=== PATIENT | male | born 1950 | race Caucasian/White ===

== ENCOUNTER 2017-02-18 18:35 | Observation (INO) | payer BC ==
[~2017-02-18] VITALS: Ht 172.7 cm; Wt 77.0 kg
[~2017-02-18 18:35] MED LIST: METFORMIN
[2017-02-18 19:07] VITALS: Ht 172.7 cm; Wt 77.0 kg
[2017-02-18] MEDS ORDERED: SODIUM CHLORIDE 0.9% 1L BAG IV* STA (20:35)
[2017-02-18] MEDS ORDERED: VANCOMYCIN 1 GM (PMX) 250 ML IVPB STA (20:35)
[2017-02-18] MEDS ORDERED: AZTREONAM 1 GM/NS (PMX) 50 ML IVPB STA (20:35)
[2017-02-18 21:13] LABS: ADD SCAN DIFF NO
[2017-02-18 21:17] LABS: BASOPHILS % 0.4 % (0.0-2.0); EOSINOPHILS # 0.5 10^3/ul (0.0-0.5); EOSINOPHILS % 10.9 % (0.0-7.0); LYMPHOCYTES # 0.9 10^3/ul (0.8-2.9); LYMPHOCYTES % 19.8 % (15.0-51.0); MEAN CORPUSCULAR HEMOGLOBIN 28.9 pg (29.0-33.0); MEAN CORPUSCULAR HGB CONC 34.8 g/dl (32.0-37.0); MEAN PLATELET VOLUME 9.6 fl (7.4-10.4); MONOCYTE # 0.5 10^3/ul (0.3-0.9); NEUTROPHIL # 2.7 10^3/ul (1.6-7.5); NEUTROPHILS % 58.2 % (39.0-77.0); PLATELET COUNT 153 10^3/UL (140-415); RED BLOOD COUNT 5.54 10^6/ul (4.70-6.10); RED CELL DISTRIBUTION WIDTH 11.9 % (11.5-14.5); WHITE BLOOD COUNT 4.6 10^3/ul (4.8-10.8)
[2017-02-18 21:32] LABS: ALANINE AMINOTRANSFERASE 67 IU/L (13-69); ALBUMIN 4.1 g/dl (3.3-4.9); ALKALINE PHOSPHATASE 106 IU/L (42-121); ANION GAP 11 (8-16); ASPARTATE AMINO TRANSFERASE 40 IU/L (15-46); BILIRUBIN,INDIRECT 0.5 mg/dl (0-1.1); BILIRUBIN,TOTAL 0.5 mg/dl (0.2-1.3); BLOOD UREA NITROGEN 18 mg/dl (7-20); CARBON DIOXIDE 26 mmol/L (21-31); CHLORIDE 101 mmol/L (97-110); CREATININE 1.21 mg/dl (0.61-1.24); GLUCOSE 198 mg/dl (70-220); SODIUM 133 mmol/L (135-144); TOTAL PROTEIN 7.8 g/dl (6.1-8.1)
[2017-02-18 21:36] LABS: ACETAMINOPHEN < 10.0 ug/ml (10.0-30.0); ETHANOL < 10.0 mg/dl; SALICYLATE < 1.0 mg/dl (5.0-30.0)
[2017-02-18 21:42] LABS: INR 1.07; PARTIAL THROMBOPLASTIN TIME 32.3 Sec (25.0-35.0); PROTIME 13.9 Sec (12.2-14.2); PT RATIO 1.1
[2017-02-18 21:49] LABS: TROPONIN-I < 0.012 ng/ml (0.00-0.12)
[2017-02-18 22:10] LABS: ADD UMIC YES; URINE BILIRUBIN (Dip) NEGATIVE (NEGATIVE); URINE BLOOD (Dip) 1+ (NEGATIVE); URINE COLOR LT. YELLOW (YELLOW); URINE GLUCOSE (Dip) NEGATIVE (NEGATIVE); URINE KETONES (Dip) NEGATIVE (NEGATIVE); URINE LEUKOCYTE ESTERASE (Dip) NEGATIVE (NEGATIVE); URINE NITRITE (Dip) NEGATIVE (NEGATIVE); URINE TOTAL PROTEIN (Dip) 2+ (NEGATIVE); URINE UROBILINOGEN (Dip) 0.2 E.U./dL (0.1-1.0)
--- NOTE | 2017-02-18 22:32 | RADRPT ---
PROCEDURE: XR Chest. CLINICAL INDICATION: Sepsis TECHNIQUE: AP Portable chest. COMPARISON: None available FINDINGS: The soft tissues and bones are remarkable for bilateral acromioclavicular osteoarthropathy and thora cic spondylosis. Low lung volumes are present. No focal infiltrates, masses or effusions are prese nt. The mediastinum is normal. Mild cardiomegaly is present. No pleural effusions are noted. No p neumothorax is present. IMPRESSION: 1. No radiographic evidence for acute cardiopulmonary disease. 2. Mild bilateral acromioclavicular osteoarthropathy and thoracic spondylosis. RPTAT: HDC .Mary Beth Salcedo MD, Date Time Electronically viewed and signed by .Mary Beth Salcedo MD, on 02/18/2017 22:32 .C/
--- NOTE | 2017-02-18 22:34 | RADRPT ---
PROCEDURE: CT Brain without contrast. CLINICAL INDICATION: Sepsis TECHNIQUE: A CT of the brain was performed on a GE [employer] 64-slice CT scanner utilizing axial imaging from the skull base through the vertex without IV contrast. Multiplanar reformatted images were made. Images were reviewed on a PACS workstation. The CTDIvol is 44.77 mGy and the DLP is 720 .23 mGycm. One of the following 3 dose reduction techniques were used: Automated exposure control; adjustment of the mA and/or kV according to patient size; or use of iterative reconstruction technique. COMPARISON: None available FINDINGS: There is no intracranial hemorrhage, mass effect, or midline shift. No extra-axial fluid collection is seen. The ventricles and sulci are normal in size and configuration. The density of the brain is normal, and the burns white matter differentiation appears well-preserved. The visualized scalp and calvarium are normal. The bilateral orbits are normal. The bilateral para nasal sinuses are remarkable for bilateral maxillary sinus air fluid levels. Mild chronic bilateral ethmoid sinus disease is present. The bilateral mastoid air cells and middle ear cavities are viridiana r. IMPRESSION: 1. No evidence of acute intracranial hemorrhage, infarcts, or acute intracranial pathology. 2. Normal noncontrast brain CT. 3. Acute bilateral maxillary sinusitis. RPTAT: HDC .Mary Beth Salcedo MD, MD Date Time Electronically viewed and signed by .Mary Beth Salcedo MD, MD on 02/18/2017 22:34 .C/
--- NOTE | 2017-02-18 22:40 | ERA ---
ER Documentation Chief Complaint Date/Time DATE: 02/18/17 TIME: 22:39 Chief Complaint Confusion, worsening vision, non compliant with abx for 10 days HPI Patient is a 67-year-old male with diabetes who presents with confusion. The patient also has headache and body aches. He has had a cough as well. The symptoms started on February 11 which was 1 week ago. The patient was given Zithromax but did not finish the whole course. He tried Mucinex as well. He has had fever. The family said he is so weak he could hardly even get him out of the house today to come to the emergency department. The patient's primary doctor is Dr. Chilango Solorio. ROS All systems reviewed and are negative except as per history of present illness. Medications Home Meds Discontinued Reported Medications [Metformin] No Conflict Check 07/10/10 Allergies Allergies: Coded Allergies: Penicillins (Verified Allergy, Mild, 02/18/17) PMhx/Soc History of Surgery: Yes (knee 30yrs ago) Anesthesia Reaction: No Hx Neurological Disorder: No Hx Respiratory Disorders: No Hx Cardiac Disorders: No Hx Psychiatric Problems: No Hx Miscellaneous Medical Probl: No Hx Alcohol Use: No Hx Substance Use: No Hx Tobacco Use: No Smoking Status: Never smoker FmHx Family History: No diabetes Physical Exam Vitals Vital Signs Date Time Temp Pulse Resp B/P Pulse Ox O2 Delivery O2 Flow Rate FiO2 02/18/17 21:00 Nasal Cannula 2 02/18/17 20:50 99.0 75 20 152/83 100 Nasal Cannula 02/18/17 19:07 99.7 85 20 169/83 94 Physical Exam Const: No acute distress Head: Atraumatic Eyes: Normal Conjunctiva ENT: Normal External Ears, Nose and Mouth. Neck: Full range of motion..~ No meningismus. Resp: Decreased breath sounds bilaterally Cardio: Regular rate and rhythm, no murmurs Abd: Soft, non tender, non distended. Normal bowel sounds Skin: No petechiae or rashes Back: No midline or flank tenderness Ext: No cyanosis, or edema Neur: Awake but seems diffusely weak Result Diagram: 02/18/17204402/18/172044 Results 24 hrs Laboratory Tests Test 02/18/17 20:45 02/18/17 21:40 White Blood Count 4.610^3/ul Red Blood Count 5.5410^6/ul Hemoglobin 16.0g/dl Hematocrit 46.0% Mean Corpuscular Volume 83.0fl Mean Corpuscular Hemoglobin 28.9pg Mean Corpuscular Hemoglobin Concent 34.8g/dl Red Cell Distribution Width 11.9% Platelet Count 86595^3/UL Mean Platelet Volume 9.6fl Neutrophils % 58.2% Lymphocytes % 19.8% Monocytes % 10.0% Eosinophils % 10.9% Basophils % 0.4% Nucleated Red Blood Cells % 0.0/100WBC Neutrophils # 2.710^3/ul Lymphocytes # 0.910^3/ul Monocytes # 0.510^3/ul Eosinophils # 0.510^3/ul Basophils # 0.010^3/ul Nucleated Red Blood Cells # 0.010^3/ul Prothrombin Time 13.9Sec Prothrombin Time Ratio 1.1 INR International Normalized Ratio 1.07 Activated Partial Thromboplast Time 32.3Sec Sodium Level 133mmol/L Potassium Level 5.0mmol/L Chloride Level 101mmol/L Carbon Dioxide Level 26mmol/L Anion Gap 11 Blood Urea Nitrogen 18mg/dl Creatinine 1.21mg/dl Glucose Level 198mg/dl Lactic Acid Level 1.2mmol/L Calcium Level 9.0mg/dl Total Bilirubin 0.5mg/dl Direct Bilirubin 0.00mg/dl Indirect Bilirubin 0.5mg/dl Aspartate Amino Transf (AST/SGOT) 40IU/L Alanine Aminotransferase (ALT/SGPT) 67IU/L Alkaline Phosphatase 106IU/L Ammonia < 9umol/l Troponin I < 0.012ng/ml Total Protein 7.8g/dl Albumin 4.1g/dl Globulin 3.70g/dl Albumin/Globulin Ratio 1.10 Thyroid Stimulating Hormone (TSH) 3.930MIU/L Free Thyroxine 0.99ng/dl Salicylates Level < 1.0mg/dl Acetaminophen Level < 10.0ug/ml Ethyl Alcohol Level < 10.0mg/dl Urine Color LT. YELLOW Urine Clarity SL HAZY Urine pH 6.0 Urine Specific [place] 1.010 Urine Ketones NEGATIVE Urine Nitrite NEGATIVE Urine Bilirubin NEGATIVE Urine Urobilinogen 0.2 E.U./dL Urine Leukocyte Esterase NEGATIVE Urine Microscopic RBC Pending Urine Microscopic WBC Pending Urine Hemoglobin 1+ Urine Glucose NEGATIVE% Urine Total Protein 2+ Current Medications Medications (Trade) Dose Ordered Sig/Pamela Route PRN Reason Start Time Stop Time Status Last Admin Dose Admin Sodium Chloride 2390 ml 2,390 ml BOLUS OVER 2 HOURS STAT IV* 02/18/17 20:35 02/18/17 20:38 DC 02/18/17 21:02 Vancomycin HCl 250 ml @ 125 mls/hr ONCE STAT IVPB 02/18/17 20:35 02/18/17 22:34 DC 02/18/17 21:47 Aztreonam (Azactam 1gm/NS (Pmx)) 50 ml @ 100 mls/hr ONCE STAT IVPB 02/18/17 20:35 02/18/17 21:04 DC 02/18/17 21:14 Procedures/MDM Chest x-ray negative per radiology. CT scan shows bilateral sinusitis per radiology. Patient is a 67-year-old male who presents with cough, fever, and confusion. The patient has basically normal laboratory studies of the low white blood cell count of 4.6. CT scan of the brain shows bilateral sinusitis. The patient's electrolytes are normal. There is no sign of intracranial mass or stroke. However given the patient's diffuse weakness and confusion I do believe that the patient should be admitted to the hospital at this time. The patient has regal insurance and I have placed a call to Dr. Hart and I am awaiting a call back at this time. The patient was given 30 mL/kg fluid bolus as well as broad- spectrum antibiotics with vancomycin and aztreonam. He has an allergy to penicillin. At this point I doubt sepsis. Departure Diagnosis: Primary Impression: Altered mental status Qualified Code: R41.82 - Altered mental status, unspecified altered mental status type Additional Impressions: Shortness of breath Pneumonia Qualified Code: J18.9 - Pneumonia due to infectious organism, unspecified laterality, unspecified part of lung Sinusitis Qualified Code: J01.90 - Acute non-recurrent sinusitis, unspecified location Condition: MARISSA Jacinto MD Feb 18, 2017 22:40
[2017-02-18 22:58] LABS: URINE RBCS 0-2 /HPF (0)
[2017-02-18] MEDS ORDERED: ONDANSETRON 4 MG INJ IV PRN (23:00)
[2017-02-18] MEDS ORDERED: ACETAMINOPHEN 325 MG TAB PO PRN (23:00)
[2017-02-18 23:08] LABS: BARBITURATES NEGATIVE (NEGATIVE); BENZODIAZEPINES NEGATIVE (NEGATIVE); CANNABINOIDS NEGATIVE (NEGATIVE); COCAINE NEGATIVE (NEGATIVE); OPIATES NEGATIVE (NEGATIVE)
[2017-02-19] MEDS ORDERED: ACETAMINOPHEN 325 MG TAB PO PRN
[2017-02-19] MEDS ORDERED: ZOLPIDEM 5 MG TAB PO PRN
[2017-02-19] MEDS ORDERED: KETOROLAC 30 MG INJ IV ONE (00:21)
[2017-02-19 05:54] LABS: ADD SCAN DIFF NO
[2017-02-19 05:57] LABS: BASOPHILS % 0.6 % (0.0-2.0); EOSINOPHILS # 0.7 10^3/ul (0.0-0.5); EOSINOPHILS % 12.6 % (0.0-7.0); HEMOGLOBIN 13.9 g/dl (14.0-18.0); LYMPHOCYTES # 1.2 10^3/ul (0.8-2.9); LYMPHOCYTES % 23.3 % (15.0-51.0); MEAN CORPUSCULAR HGB CONC 34.8 g/dl (32.0-37.0); MEAN CORPUSCULAR VOLUME 83.3 fl (82.0-101.0); MEAN PLATELET VOLUME 10.3 fl (7.4-10.4); MONOCYTE # 0.6 10^3/ul (0.3-0.9); MONOCYTES % 10.9 % (0.0-11.0); NEUTROPHIL # 2.8 10^3/ul (1.6-7.5); PLATELET COUNT 153 10^3/UL (140-415); RED CELL DISTRIBUTION WIDTH 11.9 % (11.5-14.5); WHITE BLOOD COUNT 5.3 10^3/ul (4.8-10.8)
[2017-02-19 06:28] LABS: ALBUMIN 3.6 g/dl (3.3-4.9); ALBUMIN/GLOBULIN RATIO 0.94; BILIRUBIN,INDIRECT 0.8 mg/dl (0-1.1); BILIRUBIN,TOTAL 0.8 mg/dl (0.2-1.3); CREATININE 1.2 mg/dl (0.61-1.24); TOTAL PROTEIN 7.4 g/dl (6.1-8.1)
[2017-02-19] MEDS ORDERED: LEVOFLOXACIN 500 MG TAB PO ONE (10:00)
[2017-02-19] MEDS: SOD CHLORIDE 0.9% 1,000 ML IV SCH ×3 (10:07→20:16)
[2017-02-19] MEDS ORDERED: BENAZEPRIL 20 MG TAB PO ONE (10:30)
--- NOTE | 2017-02-19 11:10 | HP ---
DATE OF ADMISSION: 02/18/2017 CHIEF COMPLAINT: Weakness and lethargy and altered mental status change. HISTORY OF PRESENT ILLNESS: The patient is a very pleasant 67-year-old gentleman who works in the maintenance department here at [employer]. He has diabetes mellitus, but does not take any medications, nor does he check his sugars at home. Approximately 1 week prior to presentation in the emergency department, the patient started feeling weak and short of breath. He presented to a clinic and was given "a shot" and he did not know what the medication was. He was also prescribed Zithromax and Mucinex. He took the Zithromax and Mucinex for approximately 3 days, but stopped it on his own because he did not feel it was helping. He also took Benadryl and subsequently took a Tylenol, which he believed helped. His symptoms persisted and he presented to the emergency department on 02/18/2017. The workup in the emergency department was essentially negative. That is, he had a normal white count and all of his labs were within normal limits. His blood sugar was 176. Hemoglobin A1c was elevated at 9.4. His BUN and creatinine were normal at 20 and 1.26. Overall, he was doing well other than his globulin be slightly elevated at 3.8, and his CT scan of the brain revealing no acute intracranial pathology. However, he did have bilateral acute sinusitis which was noted on his brain CT. He was given intravenous fluids including vancomycin and aztreonam and was placed on the observation floor for further management. ALLERGIES: PENICILLIN. PAST MEDICAL HISTORY: Diabetes mellitus. PAST SURGICAL HISTORY: The patient had renal cell carcinoma and had it being removed in 2007. SOCIAL HISTORY: Denies alcohol or tobacco use. He lives with his , daughter and 2 grandkids. He is otherwise healthy. FAMILY HISTORY: Essentially noncontributory. REVIEW OF SYSTEMS: Negative except as stated in the history of present illness. PHYSICAL EXAMINATION: VITAL SIGNS: Temperature is 98.2, blood pressure 144/66, pulse rate of 71, respiratory rate of 20, oxygen saturation 98% on 2 liters. HEENT: Normocephalic, atraumatic. Extraocular movements are intact. His pupils were equal, round, react to light and accommodations. Oropharynx is clear. No sinus pressure or tenderness on palpation. NECK: No JVD was noted. No thyromegaly was noted. CARDIOVASCULAR: Regular rate and rhythm without appreciable murmurs, rubs, or gallops. LUNGS: Clear to auscultation bilaterally without rales, rhonchi or crackles. ABDOMEN: Soft, nontender, nondistended. Normoactive bowel sounds present in all 4 quadrants. EXTREMITIES: No clubbing, cyanosis or edema was noted. LABS/TESTS: White count was 5.3, hemoglobin 13.6, hematocrit 40, platelet count 153,000 with a normal differential other than 12.6 eosinophils. Sodium is 135, potassium 5.0, chloride 109, bicarbonate 22, anion gap 9, BUN 20, creatinine 1.2. Hemoglobin A1c elevated at 9.4. Blood sugar is 176, calcium of 8.0. Bilirubin total of 0.8, indirect 0.8, AST 39, ALT 47, alkaline phosphatase 78, total protein 7.6, albumin 3.6, globulin elevated at 3.8. Toxicology is negative. Urine revealed 1+ hemoglobin and 2+ total protein, everything else was normal. His influenza A is negative. His influenza B positive is positive. His PT was 13.9, INR 1.07, PTT of 32.3. His chest x-ray was normal. His CT scan of the brain revealed acute bilateral maxillary sinusitis. IMPRESSION: The patient is a very pleasant 67-year-old gentleman who has had a week of shortness of breath and some lethargy. His influenza B is positive and his CT scan reveals acute bilateral sinusitis. He will be treated with Levaquin, to continue his antibiotic course. He will be given intravenous fluids and tamiflu (although we may be outside of the window to decrease the clinical course) and we will reassess his clinical progress in the morning. I have explained this to the patient as well as the daughter at the bedside. They are agreeable to plan. Dictated By: MILTON CAR/DAKOTA Conf#: [id number] DID#: [id number] MTDD
[2017-02-19 15:14] VITALS: BP 144/77; RESP 18
[2017-02-19] MEDS ORDERED: GLUCOSE GEL 15 GRAM TUBE BUCCAL PRN (16:30)
[2017-02-19] MEDS ORDERED: DEXTROSE 50% 50 ML SYRINGE IV PRN ×2 (16:30)
[2017-02-19] MEDS ORDERED: GLUCOSE GEL 15 GRAM TUBE PO PRN ×2 (16:30)
[2017-02-19] MEDS ORDERED: GLUCAGON 1 MG INJ IM PRN (16:30)
[2017-02-19] MEDS: metFORMIN 500 MG TAB PO SCH (17:37)
[2017-02-19] MEDS: INSULIN ASPART [NOVOLOG] 3 ML PEN SC SCH ×2 (17:41→21:00)
[2017-02-19 19:37] VITALS: BP 171/80; RESP 18
[2017-02-19] MEDS: ONDANSETRON 4 MG INJ IV PRN (20:13)
[2017-02-19] MEDS: BENAZEPRIL 20 MG TAB PO SCH (21:18)
[2017-02-19 21:19] VITALS: BP 155/71; PULSE 66
[2017-02-19 22:28] VITALS: BP 148/70; PULSE 62
[2017-02-20] MEDS: SOD CHLORIDE 0.9% 1,000 ML IV SCH ×3 (01:58→08:07)
[2017-02-20] MEDS ORDERED: ACCU-CHEK XX SCH (02:00)
[2017-02-20] MEDS: ONDANSETRON 4 MG INJ IV PRN (02:47)
[2017-02-20] MEDS ORDERED: LORAZEPAM 2 MG INJ IV PRN (04:00)
[2017-02-20 04:47] VITALS: BP 171/79; PULSE 63
[2017-02-20 05:30] VITALS: BP 151/72; PULSE 58
[2017-02-20 07:41] VITALS: BP 175/79; RESP 18
[2017-02-20] MEDS: INSULIN ASPART [NOVOLOG] 3 ML PEN SC SCH ×2 (07:46→11:55)
[2017-02-20] MEDS: metFORMIN 500 MG TAB PO SCH (08:08)
[2017-02-20] MEDS: BENAZEPRIL 20 MG TAB PO SCH (08:09)
[2017-02-20] MEDS ORDERED: OSELTAMIVIR 75 MG CAP PO SCH (09:00)
[2017-02-20] MEDS ORDERED: LEVOFLOXACIN 500MG/D5W (PMX) 100 ML IVPB SCH (10:00)
--- NOTE | 2017-02-20 10:18 | PDOCDIS ---
Discharge Instructions DIAGNOSIS Discharge Diagnosis: acute sinusitis, influenza B, CONDITION Patient Condition: Good HOME CARE INSTRUCTIONS: Diet Instructions: Reduced CalorieSpecial Diet: CARB CONTROLLED ACTIVITY: Activity Restrictions: No Restrictions Bathing Restrictions: Shower FOLLOW UP/APPOINTMENTS Appointments Endocrinology in 7-10 days PCP in 7-10 days. SCHOOL/WORK RELEASE May return to School/Work with: No Restrictions MILTON DIXON MD Feb 20, 2017 10:18
[2017-02-20] MEDS ORDERED: METF500T PO (10:24)
[2017-02-20] MEDS ORDERED: OSLT75C PO (10:24)
[2017-02-20] MEDS ORDERED: BENA20TA48 PO (10:24)
[2017-02-20] MEDS ORDERED: LEVO500T72 PO (10:24)
--- NOTE | 2017-02-20 15:15 | RADRPT ---
PROCEDURE: MR Brain without contrast. CLINICAL INDICATION: Mental status change, increased confusion TECHNIQUE: An MRI of the brain was performed utilizing the following sequences: Axial T1, axial T 2, axial FLAIR, coronal gradient echo, sagittal T1 FLAIR, diffusion weighted imaging, and ADC map. COMPARISON: CT 02/18/2017 FINDINGS: There is minimal diffuse cerebral volume loss. The ventricles are symmetric and normal in configura tion. There is no mass, mass effect, or midline shift. There is no abnormal intra-axial or extra-a xial fluid collection. There is no intracranial hemorrhage. There is no evidence of acute infarct There are scattered areas of high T2 / FLAIR signal in the periventricular white matter, consistent with minimal small vessel ischemic changes. The sella and suprasellar cistern appear within normal limits. The brainstem and posterior fossa ar e normal in configuration. The orbital soft tissue contents are unremarkable. There are retention cysts or polyps in the bilate ral maxillary sinuses. There is small fluid in the bilateral maxillary sinuses. IMPRESSION: 1. Minimal diffuse cerebral volume loss. Minimal small vessel ischemic changes. 2. Sinus disease changes including small fluid in the bilateral maxillary sinuses which may reflect acute sinusitis involvement. RPTAT: DD .Freeman Hernandez MD, MD Date Time Electronically viewed and signed by .Freeman Hernandez MD, on 02/20/2017 15:15 .T/
--- NOTE | 2017-02-21 00:04 | DS ---
DATE OF ADMISSION: 02/19/2017 DATE OF DISCHARGE: 02/20/2017 FINAL DIAGNOSES: 1. Acute maxillary sinusitis, bilateral: Improving on a 5-day course of Levaquin. 2. Diabetes mellitus: Needs better control. The patient's hemoglobin A1c was elevated at 9.4. 3. Hypertension: Needs better control. The patient was currently not on any medications, was star nell on Lotensin 20 mg which will need to be titrated up. 4. Influenza B: Improving. The patient will be completing a 5-day course of Tamiflu 75 mg orally once daily. HOSPITAL COURSE: The patient is a pleasant 67-year-old gentleman with a past medical history of rosalinda betes mellitus (not on any medication) who was in his usual state of health until about 4 to 5 days prior to admission. The patient presented with weakness, acute mental status changes and some short -term memory loss. Per the patient's family, he was "not exactly himself." [facility] aforementioned symptoms, and a complete workup was done which included a CT scan of the brain which was completely normal except for acute bilateral maxillary sinusitis. Th ere was no evidence of intracranial hemorrhage, infarction or acute intracranial pathology. This wa s a normal noncontrast brain CT. He also had a chest x-ray which revealed no radiographic evidence of acute cardiopulmonary disease, but he did have mild bilateral acromioclavicular osteoarthropathy and thoracic spondylosis. The patient was found to be influenza B positive and was started on Tamif laverne as well as oral Levaquin. Of note, as an outpatient, he may have had a REACTION TO PENICILLIN. The patient's blood tests continued to be within normal limits, and his hemoglobin A1c was 9.4. He was started on metformin 500 mg twice daily, and this prescription was given to him at the time of d ischarge. A set of liver function tests was performed, all of which were within normal limits. Danny rall, he was faring well at the time of discharge and ambulating without difficulty. I stressed the importance of having regular checkups with his primary care physician as well as refe rral to Endocrinology. I obtained insurance authorization for a visit with Dr. Olmos (Endocrinolo gy) for ongoing management of the patient's diabetes. He was continued on Glucophage 500 mg twice d aily at the time of discharge. CONDITION ON DISCHARGE: Stable. DISPOSITION: Discharged to home. DISCHARGE MEDICATIONS: 1. Levaquin 500 mg p.o. daily for 5 days. 2. Tamiflu 75 mg once daily for a total of 5 days. 3. Lotensin 20 mg twice daily. 4. Metformin 500 mg twice daily. FOLLOWUP VISITS: The patient is to follow up with his primary care physician in 1 week as well as Mellissa Olmos in 1 week as well. Dictated By: MILTON CAR/DAKOTA Conf#: [id number] DID#: [id number]
== END 2017-02-20 16:25 | disposition home or self-care (01) ==
LOC: E/R 18:35 → MS2 02-19 14:58 → INTOOBSV 02-19 14:58
PROVIDERS: ADMIT Internal Medicine; ATTEND Internal Medicine
DX: J01.00 Acute maxillary sinusitis, unspecified (principal); E11.65 Type 2 diabetes mellitus with hyperglycemia; I10 Essential (primary) hypertension; R41.82 Altered mental status, unspecified; J11.1 Influenza due to unidentified influenza virus with other respiratory manifestations; M47.814 Spondylosis without myelopathy or radiculopathy, thoracic region; M19.012 Primary osteoarthritis, left shoulder; M19.011 Primary osteoarthritis, right shoulder; Z79.4 Long term (current) use of insulin
CPT/HCPCS: 36415; 70450; 70551; 71010; 80053; 80306; 80307; 81001; 82140; 82962; 83036; 83605; 83735; 84439; 84443; 84484; 85025; 85610; 85730; 87040; 87086; 87400; 96372; 96374; 96375; 99285; G0378; J1815; J1885; J1956; J2060; J2405; J3370; J7030; 81003

== ENCOUNTER 2017-06-27 11:50 | Emergency (ER) | payer BC ==
[~2017-06-27] VITALS: Ht 170.2 cm; Wt 71.5 kg
[~2017-06-27 11:50] MED LIST changes: +BENA20TA48 PO; +LEVO500T72 PO; +METF500T PO; -METFORMIN; +OSLT75C PO
[2017-06-27 11:52] VITALS: Ht 170.2 cm; Wt 71.5 kg
[2017-06-27] MEDS ORDERED: ACETAMINOPHEN 325 MG TAB PO ONE (12:30)
[2017-06-27] MEDS ORDERED: IBUP-1542 PO (13:46)
--- NOTE | 2017-06-27 13:47 | RADRPT ---
PROCEDURE: XR lumbar spine CLINICAL INDICATION: Back pain status post fall, trauma TECHNIQUE: 3 views of the lumbar spine were obtained COMPARISON: None available FINDINGS: There is generalized osteopenia without fracture identified. There is preservation of the lordosis of the lumbar spine. There is grade 1 anterolisthesis at L5-S1. Vertebral bodies are maintained in height. There are multilevel anterior osteophytes which are more pronounced at L2-3 and L3-4. The L5-S1 disk space is mildly narrowed. Facet arthropathy is seen at L5-S1 there are questionable L5 spondylolysis defects. IMPRESSION: No fracture identified. Lumbar spondylosis/degenerative enthesopathy with grade 1 anterolisthesis at L5-S1. Questionable L5 spondylolysis. Osteopenia. RPTAT: EE .Jose Lawson MD, Date Time Electronically viewed and signed by .Jose Lawson MD, on 06/27/2017 13:46 .O/
--- NOTE | 2017-06-27 13:53 | ERD ---
ER Documentation Chief Complaint Date/Time DATE: 06/27/17 TIME: 13:49 Chief Complaint slipped on [address] and hurt left lower back HPI This 67-year-old male presents with left-sided low back pain after slipping on a wet floor today. 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 He has pain primarily on the left L4-L5 area of his back. He is ambulatory. ROS All systems reviewed and are negative except as per history of present illness. Medications Home Meds Active Scripts Ibuprofen* (Motrin*) 600 Mg Tab, 600 MG PO Q6, #15 TAB Prov:RANDOLPH CLIFFORD MD 06/27/17 Levofloxacin* (Levaquin*) 500 Mg Tablet, 500 MG PO DAILY for sinusitis for 5 Days, #5 TAB 0 Refills Prov:MILTON DIXON MD 02/20/17 Metformin Hcl (Glucophage) 500 Mg Tablet, 500 MG PO BID WITH MEALS for 30 Days, #60 TAB Prov:MILTON DIXON MD 02/20/17 Benazepril Hcl* (Benazepril Hcl*) 20 Mg Tablet, 20 MG PO DAILY for 30 Days, #30 TAB 0 Refills Prov:MILTON DIXON MD 02/20/17 Oseltamivir Phosphate* (Tamiflu*) 75 Mg Capsule, 75 MG PO DAILY for 5 Days, #5 CAP Prov:MILTON DIXON MD 02/20/17 Allergies Allergies: Coded Allergies: Penicillins (Verified Allergy, Mild, 02/18/17) PMhx/Soc History of Surgery: No Anesthesia Reaction: No Hx Neurological Disorder: No Hx Respiratory Disorders: No Hx Cardiac Disorders: Yes (htn) Hx Psychiatric Problems: No Hx Miscellaneous Medical Probl: No Hx Alcohol Use: No Hx Substance Use: No Hx Tobacco Use: No Smoking Status: Never smoker Physical Exam Vitals Vital Signs Date Time Temp Pulse Resp B/P Pulse Ox O2 Delivery O2 Flow Rate FiO2 06/27/17 11:52 98.6 74 18 151/79 96 Physical Exam Const: []Alert, [id number]. Head: Atraumatic Eyes: Normal Conjunctiva ENT: Normal External Ears, Nose and Mouth. Neck: Full range of motion..~ No meningismus. Resp: Clear to auscultation bilaterally Cardio: Regular rate and rhythm, no murmurs Abd: Soft, non tender, non distended. Normal bowel sounds Skin: No petechiae or rashes Back: No midline or flank tenderness. Tenderness left L4-L5 paraspinous muscles. Ext: No cyanosis, or edema Neur: Awake and alert. Ambulatory without neurologic deficits and normal gait. Psych: Normal Mood and Affect Results 24 hrs Current Medications Medications (Trade) Dose Ordered Sig/Pamela Route PRN Reason Start Time Stop Time Status Last Admin Dose Admin Acetaminophen (Tylenol Tab) 650 mg ONCE ONCE PO 06/27/17 12:30 06/27/17 12:31 DC 06/27/17 12:13 Procedures/MDM 18. Subjective complaints-left low back pain after slipping backwards on a wet floor onto his buttocks. 19. Objective findings- Tender left L4-L5 paraspinous area. 19 B. X-ray and laboratory results- X-ray LS-Spine 3V Interpreted by me: Bones: [No fracture] Joints: [No dislocation] Foreign body: [None] x-ray lumbar spine shows degenerative changes lumbar spine without fracture dislocation. 20. Diagnosis-back contusion or lumbar strain 21. Findings and diagnosis consistent with patient's account of injury and onset?-Yes 22. Conditions that will impede or delay the patient's recovery? No 23. Treatment rendered- Tylenol given Further treatment required- Follow-up with employee health in 1 day 24. Patient hospitalized?-No 25. Work status-off work remainder of shift today. No lifting or stooping or bending lifting greater than 10 pounds until further evaluation by employee health Able to perform usual work-no Patient can return on-June 29, 2017 Restrictions-no lifting, stooping, bending, lifting greater than 10 pounds. Departure Diagnosis: Primary Impression: Lumbar strain Encounter type: initial encounter Qualified Code: S39.012A - Strain of lumbar region, initial encounter Additional Impression: Fall Encounter type: initial encounter Qualified Code: W19.XXXA - Fall, initial encounter Condition: Stable Patient Instructions: Back Sprain/Strain, Fall, Mechanical Additional Instructions: Recheck with employee health tomorrow for recheck. RANDOLPH CLIFFORD MD Jun 27, 2017 13:52
== END 2017-06-27 14:14 | disposition home or self-care (01) ==
LOC: FTE 11:50
DX: S39.012A Strain of muscle, fascia and tendon of lower back, initial encounter (principal); I10 Essential (primary) hypertension; W18.49XA Other slipping, tripping and stumbling without falling, initial encounter; Y92.9 Unspecified place or not applicable
CPT/HCPCS: 72100